=== PATIENT | male | born 1955 | race African-American/Black ===

== ENCOUNTER 2016-11-28 09:01 | Emergency (ER) | payer SELFPAY ==
[~2016-11-28] VITALS: Ht 177.8 cm; Wt 100.0 kg
[2016-11-28 09:02] VITALS: BP 138/72; PULSE 74; RESP 14; TEMP 97.8; O2SAT 95
[2016-11-28] MEDS ORDERED: ZANT150T2 PO (09:17)
[2016-11-28] MEDS ORDERED: ALVE80AE2 INH (09:17)
[2016-11-28] MEDS ORDERED: LEVO.15 PO ×2 (09:17→11:59)
[2016-11-28] MEDS ORDERED: ATEN50TA PO (09:17)
[2016-11-28] MEDS ORDERED: XOPEAER4 INH (09:17)
[2016-11-28] MEDS ORDERED: SODIUM CHLOR 0.9% 1000 ML INJ 1,000 ML IV SCH (09:23)
[2016-11-28] MEDS ORDERED: SODIUM CHLORIDE 0.9% FLUSH 10 ML FLUSH IV FLUSH PRN (09:30)
--- NOTE | 2016-11-28 09:44 | PD ---
HPI Chief Complaint: Medical Clearance Time Seen by Provider: 09:17 Travel History International Travel<30 days: No Contact w/Intl Traveler<30days: No Traveled to known affect area: No History of Present Illness HPI Patient is a 61-year-old male who presents to emergency room for evaluation of "thyroid issues." Patient reports that he has been in shelter for the past few years, reports that in 2012, he was diagnosed with thyroid cancer while incarcerated. Patient reports that he was just released from [facility] on November 13, 2016 he was sent home with a prescription for synthroid 150mcg. Reports that he only has 15 pills left. Reports that he tried to follow-up with an oncologist as an outpatient as well as a primary care doctor, reports that no one will see him as he has no insurance. He was told to come to the emergency room for initial evaluation and to get help with follow up care. PFSH Past Medical History Cardiovascular Problems: Yes Hypertension: Yes Medical other: Yes Thyroid Disease: Yes Tetanus Vaccination: > 5 Years Influenza Vaccination: Yes Past Surgical History Surgical History: No Previous Surgery Social History Alcohol Use: Yes Tobacco Use: No Substance Use: Yes (cocaine ) Allergies-Medications (Allergen,Severity, Reaction): Coded Allergies: No Known Allergies (Unverified , 11/28/16) Reported Meds & Prescriptions Reported Meds & Active Scripts Active Reported Alvesco Inh (Ciclesonide Inh) 80 Mcg/Act Aero 80 Mcg INH BID Xopenex Hfa 15 GM Inh (Levalbuterol 15 GM Inh) 45 Mcg/Act Aer 45 Mcg INH BID Shake well before using. (1 puff = 45 mcg) Zantac (Ranitidine HCl) 150 Mg Tab 150 Mg PO DAILY Atenolol 50 Mg Tab 50 Mg PO DAILY Synthroid (Levothyroxine Sodium) 150 Mcg Tab 150 Mcg PO DAILY Review of Systems General / Constitutional: No: Fever Eyes: No: Visual changes HENT: No: Headaches Cardiovascular: No: Chest Pain or Discomfort Respiratory: No: Shortness of Breath Gastrointestinal: No: Abdominal Pain Genitourinary: No: Dysuria Musculoskeletal: No: Pain Skin: No Rash Neurologic: Positive: Weakness Psychiatric: No: Depression Endocrine: No: Polydipsia Hematologic/Lymphatic: No: Easy Bruising Physical Exam Narrative GENERAL: NAD SKIN: Focused skin assessment warm/dry. HEAD: Atraumatic. Normocephalic. EYES: Pupils equal and round. No scleral icterus. No injection or drainage. ENT: No nasal bleeding or discharge. Mucous membranes pink and moist. NECK: Trachea midline. No JVD. CARDIOVASCULAR: Regular rate and rhythm. No murmur appreciated. RESPIRATORY: No accessory muscle use. Clear to auscultation. Breath sounds equal bilaterally. GASTROINTESTINAL: Abdomen soft, non-tender, nondistended. Hepatic and splenic margins not palpable. MUSCULOSKELETAL: No obvious deformities. No clubbing. No cyanosis. No edema. NEUROLOGICAL: Awake and alert. No obvious cranial nerve deficits. Motor grossly within normal limits. Normal speech. PSYCHIATRIC: Appropriate mood and affect; insight and judgment normal. Data Data Last Documented VS Vital Signs Date Time Temp Pulse Resp B/P (MAP) Pulse Ox O2 Delivery O2 Flow Rate FiO2 11/28/16 09:02 97.8 74 14 138/72 (94) 95 Orders Orders Complete Blood Count With Diff (11/28/16:) Comprehensive Metabolic Panel (11/28/16:) Iv Access Insert/Monitor (11/28/16:) Sodium Chlor 0.9% 1000 Ml Inj (Ns 1000 M (11/28/16 09:23) Sodium Chloride 0.9% Flush (Ns Flush) (11/28/16 09:30) Thyroid Stimulating Hormone (11/28/16:23) Labs Laboratory Tests Test 11/28/16 09:26 White Blood Count 4.7 TH/MM3 Red Blood Count 4.83 MIL/MM3 Hemoglobin 13.8 GM/DL Hematocrit 41.6 % Mean Corpuscular Volume 86.1 FL Mean Corpuscular Hemoglobin 28.5 PG Mean Corpuscular Hemoglobin Concent 33.1 % Red Cell Distribution Width 14.6 % Platelet Count 237 TH/MM3 Mean Platelet Volume 8.6 FL Neutrophils (%) (Auto) 55.5 % Lymphocytes (%) (Auto) 30.8 % Monocytes (%) (Auto) 9.5 % Eosinophils (%) (Auto) 3.2 % Basophils (%) (Auto) 1.0 % Neutrophils # (Auto) 2.6 TH/MM3 Lymphocytes # (Auto) 1.5 TH/MM3 Monocytes # (Auto) 0.5 TH/MM3 Eosinophils # (Auto) 0.2 TH/MM3 Basophils # (Auto) 0.0 TH/MM3 CBC Comment DIFF FINAL Differential Comment Blood Urea Nitrogen 17 MG/DL Creatinine 1.21 MG/DL Random Glucose 99 MG/DL Total Protein 7.9 GM/DL Albumin 3.7 GM/DL Calcium Level 8.9 MG/DL Alkaline Phosphatase 109 U/L Aspartate Amino Transf (AST/SGOT) 50 U/L Alanine Aminotransferase (ALT/SGPT) 40 U/L Total Bilirubin 0.4 MG/DL Sodium Level 137 MEQ/L Potassium Level 4.8 MEQ/L Chloride Level 106 MEQ/L Carbon Dioxide Level 24.4 MEQ/L Anion Gap 7 MEQ/L Estimat Glomerular Filtration Rate 74 ML/MIN Thyroid Stimulating Hormone 3rd Gen 7.080 uIU/ML MDM Medical Decision Making Medical Screen Exam Complete: Yes Emergency Medical Condition: Yes Medical Record Reviewed: Yes Interpretation(s) Vital Signs Date Time Temp Pulse Resp B/P (MAP) Pulse Ox O2 Delivery O2 Flow Rate FiO2 11/28/16 09:02 97.8 74 14 138/72 (94) 95 Differential Diagnosis Hypothyroidism, thryoid cancer, electrolyte abnormality Narrative Course Patient is a 61-year-old male who presents to emergency room for evaluation of "thyroid issues" as well as "thyroid cancer." He was recently released from shelter on November 13, 2016 and was told to come to the ER for initial visit to help with follow up appointments. Patient would like his labs as his thyroid studies checked and he would also like a refill on his Synthroid. Patient was referred to the [facility] for follow up. Patient understands that he will need to follow up with specialist as outpatient. Plan to have patient financial specialist speak to patient about filling out forms for medicaid. Vital Signs Date Time Temp Pulse Resp B/P (MAP) Pulse Ox O2 Delivery O2 Flow Rate FiO2 11/28/16 09:02 97.8 74 14 138/72 (94) 95 Laboratory Tests Test 11/28/16 09:26 White Blood Count 4.7 TH/MM3 (4.0-11.0) Red Blood Count 4.83 MIL/MM3 (4.50-5.90) Hemoglobin 13.8 GM/DL (13.0-17.0) Hematocrit 41.6 % (39.0-51.0) Mean Corpuscular Volume 86.1 FL (80.0-100.0) Mean Corpuscular Hemoglobin 28.5 PG (27.0-34.0) Mean Corpuscular Hemoglobin Concent 33.1 % (32.0-36.0) Red Cell Distribution Width 14.6 % (11.6-17.2) Platelet Count 237 TH/MM3 (150-450) Mean Platelet Volume 8.6 FL (7.0-11.0) Neutrophils (%) (Auto) 55.5 % (16.0-70.0) Lymphocytes (%) (Auto) 30.8 % (9.0-44.0) Monocytes (%) (Auto) 9.5 % (0.0-8.0) Eosinophils (%) (Auto) 3.2 % (0.0-4.0) Basophils (%) (Auto) 1.0 % (0.0-2.0) Neutrophils # (Auto) 2.6 TH/MM3 (1.8-7.7) Lymphocytes # (Auto) 1.5 TH/MM3 (1.0-4.8) Monocytes # (Auto) 0.5 TH/MM3 (0-0.9) Eosinophils # (Auto) 0.2 TH/MM3 (0-0.4) Basophils # (Auto) 0.0 TH/MM3 (0-0.2) CBC Comment DIFF FINAL Differential Comment Blood Urea Nitrogen 17 MG/DL (7-18) Creatinine 1.21 MG/DL (0.60-1.30) Random Glucose 99 MG/DL (74-106) Total Protein 7.9 GM/DL (6.4-8.2) Albumin 3.7 GM/DL (3.4-5.0) Calcium Level 8.9 MG/DL (8.5-10.1) Alkaline Phosphatase 109 U/L (45-117) Aspartate Amino Transf (AST/SGOT) 50 U/L (15-37) Alanine Aminotransferase (ALT/SGPT) 40 U/L (12-78) Total Bilirubin 0.4 MG/DL (0.2-1.0) Sodium Level 137 MEQ/L (136-145) Potassium Level 4.8 MEQ/L (3.5-5.1) Chloride Level 106 MEQ/L (98-107) Carbon Dioxide Level 24.4 MEQ/L (21.0-32.0) Anion Gap 7 MEQ/L (5-15) Estimat Glomerular Filtration Rate 74 ML/MIN (>89) Thyroid Stimulating Hormone 3rd Gen 7.080 uIU/ML (0.358-3.740) Patient reevaluated, patient with no complaints at this time. I reviewed all labs and all studies with patient in detail including abnormal TSH. Patient understands that he will need to go to the clinic for further changes in his medications for hypothyroidism and for his cancer workup. I will write for prescription for Synthroid in the meantime, he will go to the [facility]. Patient happy with plan of care. Copies of his studies will be given to him at discharge Diagnosis Primary Impression: Abnormal TSH Patient Instructions: General Instructions Additional Instructions: Please provide patient with a copy of his lab work at discharge Please follow up at the [facility] Take all medications as prescribed Return to ER as needed Med/Other Pt SpecificInfo: Prescription(s) given Scripts Levothyroxine (Synthroid) 150 Mcg Tab 150 MCG PO DAILY for Thyroid, #30 TAB 0 Refills Prov: Lavern Paul DO 11/28/16 Disposition: 01 DISCHARGE HOME Condition: Stable Lavern Paul DO Nov 28, 2016 09:44
[2016-11-28 10:04] LABS: AUTOMATED NEUTROPHIL # 2.6 TH/MM3 (1.8-7.7); EOSINOPHIL # 0.2 TH/MM3 (0-0.4); EOSINOPHIL % 3.2 % (0.0-4.0); HEMATOCRIT 41.6 % (39.0-51.0); HEMO FLAGS DIFF FINAL; LYMPH % 30.8 % (9.0-44.0); LYMPHOCYTE # 1.5 TH/MM3 (1.0-4.8); MEAN CELL VOLUME 86.1 FL (80.0-100.0); MEAN CORPUSCULAR HEMOGLOBIN 28.5 PG (27.0-34.0); MEAN CORPUSCULAR HGB CONC 33.1 % (32.0-36.0); MONO % 9.5 % (0.0-8.0); NEUT % 55.5 % (16.0-70.0); PLATELET COUNT 237 TH/MM3 (150-450); RED BLOOD COUNT 4.83 MIL/MM3 (4.50-5.90); RED CELL DISTRIBUTION WIDTH 14.6 % (11.6-17.2); WHITE BLOOD COUNT 4.7 TH/MM3 (4.0-11.0)
[2016-11-28 10:36] LABS: ANION GAP 7 MEQ/L (5-15); AST (GOT) 50 U/L (15-37); BICARBONATE 24.4 MEQ/L (21.0-32.0); BLOOD UREA NITROGEN 17 MG/DL (7-18); CHLORIDE 106 MEQ/L (98-107); GLOMERULAR FILTRATION RATE 74 ML/MIN (>89); SODIUM (NA) 137 MEQ/L (136-145)
[2016-11-28 10:37] LABS: POTASSIUM 4.8 MEQ/L (3.5-5.1)
[2016-11-28 10:38] LABS: ALKALINE PHOSPHATASE 109 U/L (45-117); ALT (GPT) 40 U/L (12-78); TOTAL BILIRUBIN ADULT 0.4 MG/DL (0.2-1.0)
[2016-11-28 12:15] VITALS: BP 128/81; TEMP 97.8
== END 2016-11-28 12:15 | disposition home or self-care (01) ==
LOC: NEPC 09:01
DX: R94.6 Abnormal results of thyroid function studies (principal); I10 Essential (primary) hypertension
CPT/HCPCS: 80053; 84443; 85025; 96360; 99284; J7030

== ENCOUNTER 2017-04-08 11:03 | Emergency (ER) | payer OTHER ==
[~2017-04-08] VITALS: Ht 177.8 cm; Wt 113.0 kg
[~2017-04-08 11:03] MED LIST: ALVE80AE2 INH; ATEN50TA PO; LEVO.15 PO; XOPEAER4 INH; ZANT150T2 PO
[2017-04-08 11:08] VITALS: BP 123/71; PULSE 73; RESP 18; TEMP 98.7; O2SAT 95
[2017-04-08 11:15] VITALS: RESP 18; O2SAT 95
[2017-04-08] MEDS ORDERED: SODIUM CHLORIDE 0.9% FLUSH 10 ML FLUSH IVF PRN (11:30)
--- NOTE | 2017-04-08 11:42 | PD ---
HPI Chief Complaint: Respiratory Symptoms Time Seen by Provider: 11:15 Travel History International Travel<30 days: No Contact w/Intl Traveler<30days: No Traveled to known affect area: No History of Present Illness HPI 61-year-old male with history of hypothyroidism, asthma, hypertension presents emergency department the request of his PCP for increased weight gain, pedal edema, shortness of breath with exertion and orthopnea for approximately 2-3 weeks. Patient states that he noticed swelling in his lower extremities approximately 3 weeks left greater than right and began having trouble with shortness of breath. States he has been more tired than usual and he has been using 2 pillows to sleep at night. Currently denies chest pain, nausea, vomiting, diarrhea, back pain. States his lower left extremity, calf area, is tender to palpation and occasionally with walking. Patient was previously diagnosed with thyroid cancer in 2012 but this is while he was in shelter. Patient denies recent travel, surgeries, fractures, history of blood clots. Denies fevers or chills. Denies family history of heart problems. PFSH Past Medical History Cardiovascular Problems: Yes Hypertension: Yes Thyroid Disease: Yes Past Surgical History Other Surgery: Yes (RIGHT BICEP;RIGHT RING FINGER) Social History Alcohol Use: No Tobacco Use: No Substance Use: Yes (cocaine ) Allergies-Medications (Allergen,Severity, Reaction): Coded Allergies: No Known Allergies (Unverified , 11/28/16) Reported Meds & Prescriptions Reported Meds & Active Scripts Active Synthroid (Levothyroxine Sodium) 150 Mcg Tab 150 Mcg PO DAILY Reported Alvesco Inh (Ciclesonide Inh) 80 Mcg/Act Aero 80 Mcg INH BID Xopenex Hfa 15 GM Inh (Levalbuterol 15 GM Inh) 45 Mcg/Act Aer 45 Mcg INH BID Shake well before using. (1 puff = 45 mcg) Atenolol 50 Mg Tab 50 Mg PO DAILY Review of Systems Except as stated in HPI: all other systems reviewed are Neg Physical Exam Narrative GENERAL: WD, WN in NAD SKIN: Focused skin assessment warm/dry. HEAD: Atraumatic. Normocephalic. EYES: Pupils equal and round. No scleral icterus. No injection or drainage. ENT: No nasal bleeding or discharge. Mucous membranes pink and moist. NECK: Trachea midline. No JVD. CARDIOVASCULAR: Regular rate and rhythm. No murmur appreciated. RESPIRATORY: No accessory muscle use. Clear to auscultation. Breath sounds equal bilaterally. GASTROINTESTINAL: Abdomen soft, non-tender, nondistended. Hepatic and splenic margins not palpable. MUSCULOSKELETAL: No obvious deformities. No clubbing. No cyanosis. Left lower extremity-mildly edematous, positive homans right lower extremity- NEUROLOGICAL: Awake and alert. No obvious cranial nerve deficits. Motor grossly within normal limits. Normal speech. PSYCHIATRIC: Appropriate mood and affect; insight and judgment normal. Data Data Last Documented VS Vital Signs Date Time Temp Pulse Resp B/P (MAP) Pulse Ox O2 Delivery O2 Flow Rate FiO2 04/08/17 14:52 04/08/17 14:30 78 16 95 Room Air 04/08/17 11:08 98.7 Orders Orders Complete Blood Count With Diff (04/08/17 11:29) Comprehensive Metabolic Panel (04/08/17 11:29) B-Type Natriuretic Peptide (04/08/17 11:29) Act Partial Throm Time (Ptt) (04/08/17 11:29) Prothrombin Time / Inr (Pt) (04/08/17 11:29) Magnesium (Mg) (04/08/17 11:29) Troponin I (04/08/17 11:29) Urinalysis - C+S If Indicated (04/08/17 11:29) Iv Access Insert/Monitor (04/08/17 11:29) Ecg Monitoring (04/08/17 11:29) Oximetry (04/08/17 11:29) Chest, Pa & Lat (04/08/17 11:29) Us Leg Venous Doppler (04/08/17 11:29) Sodium Chloride 0.9% Flush (Ns Flush) (04/08/17 11:30) D-Dimer (04/08/17 13:09) Electrocardiogram (04/08/17 11:17) Urine Culture (04/08/17 14:02) Ed Discharge Order (04/08/17 14:26) Labs Laboratory Tests Test 04/08/17 11:30 04/08/17 12:48 04/08/17 14:02 White Blood Count 5.6 TH/MM3 Red Blood Count 5.16 MIL/MM3 Hemoglobin 14.5 GM/DL Hematocrit 42.8 % Mean Corpuscular Volume 83.0 FL Mean Corpuscular Hemoglobin 28.0 PG Mean Corpuscular Hemoglobin Concent 33.8 % Red Cell Distribution Width 15.1 % Platelet Count 248 TH/MM3 Mean Platelet Volume 8.9 FL Neutrophils (%) (Auto) 59.4 % Lymphocytes (%) (Auto) 29.2 % Monocytes (%) (Auto) 8.7 % Eosinophils (%) (Auto) 1.7 % Basophils (%) (Auto) 1.0 % Neutrophils # (Auto) 3.3 TH/MM3 Lymphocytes # (Auto) 1.6 TH/MM3 Monocytes # (Auto) 0.5 TH/MM3 Eosinophils # (Auto) 0.1 TH/MM3 Basophils # (Auto) 0.1 TH/MM3 CBC Comment DIFF FINAL Differential Comment Blood Urea Nitrogen 11 MG/DL Creatinine 1.18 MG/DL Random Glucose 92 MG/DL Total Protein 8.1 GM/DL Albumin 3.7 GM/DL Calcium Level 9.0 MG/DL Magnesium Level 2.2 MG/DL Alkaline Phosphatase 123 U/L Aspartate Amino Transf (AST/SGOT) 22 U/L Alanine Aminotransferase (ALT/SGPT) 24 U/L Total Bilirubin 0.6 MG/DL Sodium Level 140 MEQ/L Potassium Level 4.4 MEQ/L Chloride Level 106 MEQ/L Carbon Dioxide Level 29.1 MEQ/L Anion Gap 5 MEQ/L Estimat Glomerular Filtration Rate 77 ML/MIN Troponin I LESS THAN 0.02 NG/ML B-Type Natriuretic Peptide LESS THAN 2 PG/ML Prothrombin Time 11.1 SEC Prothromb Time International Ratio 1.1 RATIO Activated Partial Thromboplast Time 27.4 SEC D-Dimer Quantitative (PE/DVT) 0.24 MG/L FEU Urine Color YELLOW Urine Turbidity CLEAR Urine pH 6.0 Urine Specific Bronson 1.020 Urine Protein NEG mg/dL Urine Glucose (UA) NEG mg/dL Urine Ketones NEG mg/dL Urine Occult Blood NEG Urine Nitrite NEG Urine Bilirubin NEG Urine Urobilinogen LESS THAN 2.0 MG/DL Urine Leukocyte Esterase MOD Urine RBC 2 /hpf Urine WBC 10 /hpf Urine Squamous Epithelial Cells <1 /hpf Urine Mucus FEW /lpf Microscopic Urinalysis Comment CULTURE INDICATED MDM Medical Decision Making Medical Screen Exam Complete: Yes Emergency Medical Condition: Yes Differential Diagnosis CHF, NSTEMI, PE, Narrative Course 61-year-old male presents emergency department at the request of his primary care physician for increased lower extremity edema, orthopnea, and shortness of breath. Patient denies history of ACS, congestive heart failure. Blood pressure 123/71, SaO2 92-95% on room air. No acute distress. EKG demonstrates sinus rhythm without STEMI changes. Cardiac enzymes negative, BNP less than 2. A d-dimer was added on as patient c/o SOB with laying flat. DDimer 0.24. LLE US negative. CXR negative. Walking SaO2 98-99%, without difficulty. I do not see a reason to admit for further evaluate this patient today. His labs, vital signs, imaging studies physical exam findings are essentially unremarkable today. Patient should follow-up with his primary care physician. Consider sleep apnea as a cause for his symptoms. Diagnosis Primary Impression: Orthopnea Referrals: [facility] Additional Instructions: Follow-up with your primary care physician within 2-3 days. Take all medication as prescribed. Disposition: 01 DISCHARGE HOME Condition: Stable Janiya Gamez Apr 08, 2017 11:41
[2017-04-08 11:51] LABS: AUTOMATED NEUTROPHIL # 3.3 TH/MM3 (1.8-7.7); BASOPHIL # 0.1 TH/MM3 (0-0.2); EOSINOPHIL # 0.1 TH/MM3 (0-0.4); EOSINOPHIL % 1.7 % (0.0-4.0); HEMATOCRIT 42.8 % (39.0-51.0); HEMOGLOBIN 14.5 GM/DL (13.0-17.0); LYMPH % 29.2 % (9.0-44.0); LYMPHOCYTE # 1.6 TH/MM3 (1.0-4.8); MEAN CORPUSCULAR HGB CONC 33.8 % (32.0-36.0); MEAN PLATELET VOLUME 8.9 FL (7.0-11.0); MONO % 8.7 % (0.0-8.0); MONOCYTE # 0.5 TH/MM3 (0-0.9); NEUT % 59.4 % (16.0-70.0); PLATELET COUNT 248 TH/MM3 (150-450); RED BLOOD COUNT 5.16 MIL/MM3 (4.50-5.90); RED CELL DISTRIBUTION WIDTH 15.1 % (11.6-17.2); WHITE BLOOD COUNT 5.6 TH/MM3 (4.0-11.0)
[2017-04-08 12:06] LABS: ALBUMIN 3.7 GM/DL (3.4-5.0); ALT (GPT) 24 U/L (12-78); BICARBONATE 29.1 MEQ/L (21.0-32.0); BLOOD UREA NITROGEN 11 MG/DL (7-18); CHLORIDE 106 MEQ/L (98-107); CREATININE 1.18 MG/DL (0.60-1.30); GLOMERULAR FILTRATION RATE 77 ML/MIN (>89); GLUCOSE,RANDOM 92 MG/DL (74-106); MAGNESIUM 2.2 MG/DL (1.5-2.5); SODIUM (NA) 140 MEQ/L (136-145)
[2017-04-08 12:13] LABS: ALKALINE PHOSPHATASE 123 U/L (45-117); AST (GOT) 22 U/L (15-37); TOTAL BILIRUBIN ADULT 0.6 MG/DL (0.2-1.0); TROPONIN I LESS THAN 0.02 NG/ML (0.02-0.05)
[2017-04-08 12:14] LABS: TOTAL PROTEIN 8.1 GM/DL (6.4-8.2)
--- NOTE | 2017-04-08 12:34 | RADRPT ---
EXAM DATE/TIME: 04/08/2017 11:47 [facility] COMPARISON: No previous studies available for comparison. INDICATIONS : Shortness of breath. MEDICAL HISTORY : Hypertension. Asthma. SURGICAL HISTORY : None. ENCOUNTER: Initial ACUITY: 2 days PAIN SCORE: 0/10 LOCATION: Bilateral chest FINDINGS: PA and lateral views of the chest demonstrate the lungs to be symmetrically aerated without evidence of mass, infiltrate or effusion. The cardiomediastinal contours are unremarkable. Osseous structure s are intact. CONCLUSION: No acute disease. Wood Hinkle MD on April 08, 2017 at 12:31 Board Certified Radiologist. This report was verified electronically.
--- NOTE | 2017-04-08 12:52 | RADRPT ---
EXAM DATE/TIME: 04/08/2017 12:05 [facility] COMPARISON: No previous studies available for comparison. INDICATIONS : Right leg swelling. MEDICAL HISTORY : Thyroid disease. Hypertension. Substance abuse. SURGICAL HISTORY : Left hand surgery. Right bicep surgery. Right ring finger surgery. ENCOUNTER: Initial ACUITY: 1 day PAIN SCORE: 4/10 LOCATION: Right leg TECHNIQUE: Venous ultrasound of the leg was performed from the inguinal ligament to the proximal calf. Real-antony e, color Doppler and spectral tracing, compression and augmentation techniques were used. FINDINGS: There is normal compressibility of the deep venous system from the inguinal region to the proximal ca lf. No echogenic clot is seen in the lumen of the common femoral, femoral, popliteal, and posterior tibial veins. There is a normal response of the venous system to proximal and distal augmentation an d respiration. CONCLUSION: No evidence of DVT. Wood Hinkle MD on April 08, 2017 at 12:49 Board Certified Radiologist. This report was verified electronically.
[2017-04-08 13:00] VITALS: BP 108/62; PULSE 67; RESP 18; O2SAT 95
[2017-04-08 13:16] LABS: INTERNATIONAL NORMALIZED RATIO 1.1 RATIO; PROTHROMBIN TIME - PATIENT 11.1 SEC (9.8-11.6)
[2017-04-08 14:20] LABS: BILIRUBIN, URINE NEG (NEG); BLOOD, URINE NEG (NEG); GLUCOSE,URINE NEG (NEG); KETONE, URINE NEG (NEG); MUCUS URINE FEW /lpf (OCC); NITRITE,URINE NEG (NEG); SQUAMOUS EPITHELIAL CELL URINE <1 /hpf (0-5); URINE COLOR YELLOW (YELLW/STRAW); URINE LEUKOCYTE ESTERASE MOD (NEG)
[2017-04-08 14:30] VITALS: BP 104/58; PULSE 78; RESP 16; O2SAT 95
--- NOTE | 2017-04-09 11:32 | EKG ---
Date Performed: 04/08/2017 Time Performed: 11:17:11 PTAGE: 61 years EKG: Sinus rhythm Right bundle branch block BORDERLINE ECG NO PREVIOUS TRACING DOCTOR: Fabian Ruiz Interpretating Date/Time 04/09/2017 12:11:27
== END 2017-04-08 14:53 | disposition home or self-care (01) ==
LOC: NEPC 11:03
DX: R06.01 Orthopnea (principal); R94.31 Abnormal electrocardiogram [ECG] [EKG]; R06.02 Shortness of breath; E03.9 Hypothyroidism, unspecified; J45.909 Unspecified asthma, uncomplicated; I10 Essential (primary) hypertension; F14.90 Cocaine use, unspecified, uncomplicated; Z85.850 Personal history of malignant neoplasm of thyroid
CPT/HCPCS: 71046; 80053; 81001; 83735; 83880; 84484; 85025; 85379; 85610; 85730; 87086; 93005; 93971